=== PATIENT | female | born 2000 | race Caucasian/White ===

== ENCOUNTER → 2022-08-08 14:55 | Outpatient (BNVA) | payer BC, SELFPAY | PROVIDERS: PCP Nurse Practitioner Family; Visit Provider Nurse Practitioner Family | DX: R63.5 Abnormal weight gain (principal); N92.6 Irregular menstruation, unspecified; L67.8 Other hair color and hair shaft abnormalities; Z83.3 Family history of diabetes mellitus | CPT/HCPCS: 80053; 80061; 82157; 83001; 83036; 84144; 84403; 84439; 84443; 84480; 85025 ==